=== PATIENT | female | born 1995 | race Caucasian/White ===

== ENCOUNTER 2022-04-03 21:14 | Emergency (ER) | payer BC ==
[2022-04-03] MEDS ORDERED: Aspirin 81 MG Tab.Chew PO ONE (21:49)
[2022-04-03] MEDS ORDERED: Morphine 4 MG/ML VIAL IVPUSH ONE (22:19)
[2022-04-03 22:20] LABS: BLOOD UREA NITROGEN,BUN 15 mg/dL (7.0-18.0); CARBON DIOXIDE,CO2 27.7 mmol/L (21.0-32.0); CHLORIDE,CL 104 mmol/L (98-107); GLUCOSE RANDOM 104 mg/dL (74-106); POTASSIUM,K 4.2 mmol/L (3.5-5.1); SODIUM,NA 138 mmol/L (136-145)
[2022-04-04] MEDS ORDERED: Iopamidol 755 MG/ML 500 ML Multipack Bottle IVPUSH ONE (00:15)
== END 2022-04-04 01:55 | disposition home or self-care (01) ==
LOC: MW.ED 21:14
DX: I71.2 Thoracic aortic aneurysm, without rupture (principal); Z20.822 Contact with and (suspected) exposure to COVID-19
CPT/HCPCS: 36415; 71045; 71045-26; 71275; 71275-26; 80048; 83735; 84443; 84484; 85025; 85379; 93005; 96374; 99291; A9270-GY; J2270; Q9967; U0002

== ENCOUNTER 2022-08-19 15:43 | Emergency (ER) | payer BC ==
[2022-08-19] MEDS ORDERED: Sodium Chloride 0.9% 10 ML Syringe FLUSH PRN (18:41)
[2022-08-19] MEDS ORDERED: Ondansetron 4 MG/2 ML SDV IVPUSH ONE (18:41)
[2022-08-19] MEDS ORDERED: Dicyclomine 10 MG Cap PO ONE (18:41)
[2022-08-19] MEDS ORDERED: Sodium Chloride 0.9% 2.5 ML Syringe FLUSH PRN (18:41)
[2022-08-19] MEDS ORDERED: Ketorolac 30 MG/ML SDV IVPUSH ONE (18:41)
[2022-08-19] MEDS ORDERED: Sodium Chloride 0.9% 1,000 ML IV ONE (18:41)
[2022-08-19 19:26] LABS: CARBON DIOXIDE,CO2 27.7 mmol/L (21.0-32.0); POTASSIUM,K 3.7 mmol/L (3.5-5.1)
== END 2022-08-19 21:10 | disposition left against medical advice (07) ==
LOC: MW.ED 15:43
DX: R10.11 Right upper quadrant pain (principal)
CPT/HCPCS: 36415; 80053; 81003; 81025; 83690; 85025; 96361; 96374; 96375; 99284; A9270; J1885; J2405; J7030